=== PATIENT | female | born 1955 | race Hispanic/Latino ===

== ENCOUNTER 2018-01-09 13:59 | Emergency (ER) | payer BC ==
[2018-01-09 14:10] VITALS: TEMP 97.6
[2018-01-09 15:01] LABS: PARTIAL THROMBOPLASTIN TIME 32.8 Seconds (25.6-37.1); PROTHROMBIN TIME 10.8 Seconds (9.8-13.1)
[2018-01-09 15:05] LABS: ALB/GLOB RATIO 1.4 (1.0-2.1); ALBUMIN 4.4 g/dL (3.5-5.0); ALT/SGPT 37 U/L (9-52); AST/SGOT 22 U/L (14-36); BLOOD UREA NITROGEN 20 mg/dl (7-17); CALCIUM 9.8 mg/dL (8.4-10.2); GFR AFRICAN-AMERICAN > 60; GFR NON-AFRICAN AMERICAN > 60
[2018-01-09 15:07] LABS: BASO # 0.1 K/uL (0.0-0.2); BASO % 1.2 % (0.0-2.0); EOS # 0.1 K/uL (0.0-0.7); EOS % 1.6 % (0.0-4.0); HEMOGLOBIN 15.2 g/dL (12.0-16.0); LYMPH # 1.5 K/uL (1.0-4.3); LYMPH % 26.7 % (20.0-40.0); MEAN CELL VOLUME 89.7 fl (81.0-99.0); MEAN CORPUSCULAR HEMOGLOBIN 31.9 pg (27.0-31.0); MEAN CORPUSCULAR HGB CONC 35.6 g/dL (33.0-37.0); MEAN PLATELET VOLUME 7.8 fl (7.2-11.7); MONO # 0.5 K/uL (0.0-0.8); MONO % 8.3 % (0.0-10.0); NEUT # 3.4 K/uL (1.8-7.0); NEUT % 62.2 % (50.0-75.0); NRBC % 0.1 % (0.0-0.0); RBC 4.76 Mil/uL (3.80-5.20); WHITE BLOOD COUNT 5.5 K/uL (4.8-10.8)
--- NOTE | 2018-01-09 15:13 | ED PDOC ---
HPI: Chest Pain Time Seen by Provider: 01/09/18 14:30 Chief Complaint (Nursing): Chest Pain Chief Complaint (Provider): Chest Pain History Per: Patient History/Exam Limitations: no limitations Onset/Duration Of Symptoms: Days (x 2 weeks) Current Symptoms Are (Timing): Still Present Additional Complaint(s): Berna is a 62 y/o female with a history of acid reflux who presents to the ED complaining of chest pain for the past two weeks. Patient states she has been having almost daily episodes of chest tightness that last up to an hour with occasional radiation to her back and neck. There is no association with any activities or foods. Her last workout was a week ago on the [employer] which did not bring on the pain. Patient also had one episode of left calf pain last week and has history of recent travel on a bus to and from [place]. She denies nausea, vomiting, shortness of breath, fever, cough, or abdominal pain. She has no allergies and does not take any medicines daily. PMD: None Past Medical History Reviewed: Historical Data, Nursing Documentation, Vital Signs Vital Signs: Last Vital Signs Temp 97.6 F 01/09/18 14:07 Pulse 72 01/09/18 14:26 Resp 16 01/09/18 14:07 BP 120/76 01/09/18 14:07 Pulse Ox 99 01/09/18 15:23 - Medical History PMH: No Chronic Diseases - Surgical History Surgical History: No Surg Hx - Family History Family History: States: Hypertension Other Family History: heart disease in mother later in life - Social History Current smoker - smoking cessation education provided: No Alcohol: None - Allergies Allergies/Adverse Reactions: Allergies Allergy/AdvReac Type Severity Reaction Status Date / Time No Known Allergies Allergy Verified 01/09/18 14:07 Review of Systems ROS Statement: Except As Marked, All Systems Reviewed And Found Negative Constitutional: Negative for: Fever Cardiovascular: Positive for: Chest Pain Respiratory: Negative for: Shortness of Breath Gastrointestinal: Negative for: Nausea, Vomiting, Abdominal Pain Musculoskeletal: Negative for: Leg Pain (leg swelling, calf pain) Neurological: Negative for: Headache, Dizziness Physical Exam - Reviewed Nursing Documentation Reviewed: Yes Vital Signs Reviewed: Yes - Physical Exam Appears: Positive for: Well, Non-toxic, No Acute Distress Skin: Positive for: Normal Color, Warm, Dry Cardiovascular/Chest: Positive for: Regular Rate, Rhythm. Negative for: Murmur Respiratory: Positive for: Normal Breath Sounds. Negative for: Wheezing, Respiratory Distress Extremity: Positive for: Normal ROM. Negative for: Calf Tenderness, Swelling, Other (homans' sign) Neurologic/Psych: Positive for: Alert, Oriented - Laboratory Results Result Diagrams: 01/09/18 14:45 01/09/18 14:45 - ECG O2 Sat by Pulse Oximetry: 99 (RA) Pulse Ox Interpretation: Normal Medical Decision Making Medical Decision Making: Time: 14:30 Initial Impression: Chest Pain, rule out myocardial cause, PE, muscular disease Initial Plan: --EKG --CMP --Troponin --CBC --D Dimer --PTT --Prothrombin Time --Chest XR Time: 15:09 CHEST XR FINDINGS: LUNGS: 3 mm nodular densities at the periphery of the right midlung and left upper lung. No active pulmonary disease. PLEURA: No significant pleural effusion identified. No pneumothorax apparent. CARDIOVASCULAR: Normal. OSSEOUS STRUCTURES: No significant abnormalities. VISUALIZED UPPER ABDOMEN: Normal. OTHER FINDINGS: None. IMPRESSION: No active disease. 3 mm nodular densities at the periphery of the right midlung and left upper lung. CT scan of the chest can be obtained for further evaluation on a nonemergent basis. Time: 15:15 --CPK --LDH Scribe Attestation: Documented by Ortiz Gonzalez, acting as a scribe for Jessica Meehan MD. Provider Scribe Attestation: All medical record entries made by the Scribe were at my direction and personally dictated by me. I have reviewed the chart and agree that the record accurately reflects my personal performance of the history, physical exam, medical decision making, and the department course for this patient. I have also personally directed, reviewed, and agree with the discharge instructions and disposition. Disposition - Clinical Impression Clinical Impression: Atypical chest pain - Patient ED Disposition Is Patient to be Admitted: No Doctor Will See Patient In The: Office Counseled Patient/Family Regarding: Diagnosis, Need For Followup - Disposition Disposition: Routine/Home Disposition Time: 16:57 Condition: IMPROVED Forms: [employer] (Swedish) - POA Present On Arrival: None Core Measure Indicators: Code Freeze
[2018-01-09 17:53] VITALS: BP 130/74; PULSE 76; RESP 19; O2SAT 98
--- NOTE | 2018-01-10 15:58 | CARD ---
APPROVED REPORT EKG Measurement Heart [id number] <Conclusion> Normal sinus rhythm Possible Left atrial enlargement Nonspecific ST abnormality Abnormal ECG
== END 2018-01-09 17:53 | disposition home or self-care (01) ==
LOC: H.ER 13:59
DX: R07.89 Other chest pain (principal)